=== PATIENT | female | born 1955 | race Caucasian/White ===

== ENCOUNTER 2017-03-28 16:29 | Outpatient (CLI) | payer OTHER ==
--- NOTE | 2017-03-28 17:14 | RAD ---
PA AND LATERAL CHEST: Indication: Acute upper respiratory tract infection. Comparison: 01-27-16 FINDINGS: No airspace consolidation or pleural effusion is evident. Chronic, stable left sided subclavian chest wall port. Vascular calcification of the aortic arch is similar. There is multilevel spondylosis of the thoracic spine. IMPRESSION: No acute cardiopulmonary abnormality. POS: [facility]
== END 2017-03-28 16:30 | disposition home or self-care (01) ==
LOC: RAD 16:29
PROVIDERS: ATTEND Otolaryngology Otolaryngic Allergy
DX: C06.9 Malignant neoplasm of mouth, unspecified (principal); C10.9 Malignant neoplasm of oropharynx, unspecified; J06.9 Acute upper respiratory infection, unspecified
CPT/HCPCS: 71020

== ENCOUNTER 2025-04-03 08:45 | Outpatient (CLI) | payer OTHER | END 2025-04-03 08:46 | disposition home or self-care (01) | LOC: PET 08:45 | PROVIDERS: ATTEND Nurse Practitioner Family | DX: K13.70 Unspecified lesions of oral mucosa (principal); J38.7 Other diseases of larynx | CPT/HCPCS: 78815; A9552 ==